=== PATIENT | male | born 1990 | race Caucasian/White ===

== ENCOUNTER 2019-07-07 04:25 | Emergency (ER) | payer BC ==
[~2019-07-07] VITALS: Ht 172.7 cm; Wt 90.7 kg
[2019-07-07 05:17] LABS: ABSOLUTE NEUTROPHILS 4.4 thou/uL (1.4-8.2); BASOPHILS 0.1 % (0.0-2.0); EOSINOPHILS 1.6 % (0.0-3.0); HEMATOCRIT 43.3 % (42.0-52.0); HEMOGLOBIN 14.4 gm/dL (14.0-18.0); LYMPHOCYTES 41.5 % (24.0-44.0); MCH 27.9 pg (26.0-34.0); MCHC 33.3 g/dL (28.0-37.0); MCV 83.7 fL (80.0-100.0); MONOCYTES 6.4 % (1.0-8.0); PLATELET COUNT 160 thou/uL (150-400); POLYS 50.4 % (36.0-66.0); RBC 5.17 mil/uL (4.50-6.00); RDW 13.7 % (10.5-14.5); WBC 8.8 thou/uL (4.0-11.0)
[2019-07-07] MEDS ORDERED: NORCO 5-325 TA1 EAC1 PO (05:22)
[2019-07-07 05:23] LABS: CALCIUM 8.4 mg/dL (8.5-10.1); POTASSIUM 3.6 mmol/L (3.5-5.1)
[2019-07-07 05:35] LABS: URINE BILIRUBIN NEGATIVE (Negative); URINE BLOOD 3+ (Negative); URINE CLARITY CLEAR; URINE COLOR YELLOW; URINE GLUCOSE-RANDOM* NEGATIVE (Negative); URINE KETONES NEGATIVE (Negative); URINE LEUKOCYTES-REFLEX NEGATIVE (Negative); URINE NITRITE-REFLEX NEGATIVE (Negative); URINE PROTEIN (DIPSTICK) NEGATIVE (Negative); URINE SPECIFIC GRAVITY >= 1.030 (1.005-1.035); URINE UROBILINOGEN 0.2 E.U./dl (0.2-1.0)
[2019-07-07 05:47] VITALS: BP 102/51
[2019-07-07 06:01] LABS: BACTERIA-REFLEX 1-9 Few /HPF (None Seen); CASTS None Seen /LPF (None Seen); CRYSTALS None Seen /LPF (None Seen); MUCUS 4-6 Moderate strn/LPF (None Seen); SQUAMOUS 0-3 Few /LPF (0-3); URINE WBC-REFLEX 0-5 Rare /HPF (0-5)
== END 2019-07-07 05:50 | disposition home or self-care (01) ==
LOC: ER 04:25
PROVIDERS: Emergency Medicine
DX: N20.0 Calculus of kidney (principal); E78.5 Hyperlipidemia, unspecified